=== PATIENT | female | born 2000 | race Caucasian/White ===

== ENCOUNTER 2022-11-05 08:00 | Outpatient (CLI) | payer OTHER ==
[2022-11-05 20:10] LABS: BACTERIAL VAGINOSIS DNA NEGATIVE (NEGATIVE); CANDIDA GROUP DNA POSITIVE (NEGATIVE); CANDIDA KRUSEI DNA NEGATIVE (NEGATIVE); TRICHOMONAS VAGINALIS DNA NEGATIVE (NEGATIVE)
[2022-11-05 20:11] LABS: CANDIDA GLABRATA DNA NEGATIVE (NEGATIVE)
[2022-11-05 22:56] LABS: CHLAMYDIA TRACHOMATIS DNA NEGATIVE (NEGATIVE)
[2022-11-05 22:57] LABS: NEISSERIA GONORRHOEAE DNA NEGATIVE (NEGATIVE)
== END 2022-11-05 23:59 | disposition home or self-care (01) ==
LOC: LAB.WC 08:00
PROVIDERS: ATTEND Nurse Practitioner
DX: Z11.3 Encounter for screening for infections with a predominantly sexual mode of transmission (principal); L29.8 Other pruritus
CPT/HCPCS: 81514; 87491; 87591; 87661

== ENCOUNTER 2024-02-01 07:00 | Outpatient (CLI) | payer OTHER ==
--- NOTE | 2024-02-02 13:52 | XRAY Report ---
PROCEDURE: Chest 2V INDICATIONS: ACUTE COUGH TECHNIQUE: 2 views of the chest were acquired. COMPARISON: None. FINDINGS: Surgical changes and devices: None. Lungs and pleura: Dense consolidation is seen in the lingula with silhouetting of the left heart bor arabella. The lungs are otherwise clear. No significant pleural effusion or pneumothorax. Mediastinum: Mediastinal contours appear normal. Heart size is normal. Bones and chest wall: No suspicious bony lesions. Overlying soft tissues appear unremarkable. IMPRESSION: Dense consolidation in the lingula is suspicious for pneumonia. Reviewed by: Shayan Hernandez MD on 02/02/2024 1:51 PM PDT Approved by: Shayan Hernandez MD on 02/02/2024 1:51 PM PDT Station ID: [id number]
== END 2024-02-01 23:59 | disposition home or self-care (01) ==
LOC: DI.S 07:00
PROVIDERS: ATTEND Registered Nurse
DX: R05.1 Acute cough (principal); R50.9 Fever, unspecified